=== PATIENT | female | born 1990 | race Two or more races ===

== ENCOUNTER 2020-10-29 15:29 | Emergency (ER) | payer OTHER ==
[~2020-10-29] VITALS: Ht 162.6 cm; Wt 75.7 kg
[2020-10-29] MEDS ORDERED: PRENATAL DHA200 MG PO (15:53)
[2020-10-29] MEDS ORDERED: ACETAMINOPHEN500 M1 PO (20:06)
== END 2020-10-29 20:01 | disposition home or self-care (01) ==
LOC: ER 15:29
DX: G43.909 Migraine, unspecified, not intractable, without status migrainosus (principal)

== ENCOUNTER 2021-04-20 10:31 | Emergency (ER) | payer OTHER ==
[~2021-04-20] VITALS: Ht 162.6 cm; Wt 85.3 kg
[~2021-04-20 10:31] MED LIST: ACETAMINOPHEN500 M1 PO; PRENATAL DHA200 MG PO
[2021-04-20] MEDS ORDERED: CYCLOBENZAPRINE10 MG PO (13:16)
[2021-04-20] MEDS ORDERED: 8HR ARTHRITIS650 MG PO (13:16)
== END 2021-04-20 13:24 ==
LOC: ER 10:31
DX: M54.32 Sciatica, left side (principal)

== ENCOUNTER 2021-05-24 14:30 | Inpatient (IN) | payer OTHER ==
[~2021-05-24] VITALS: Ht 162.6 cm; Wt 3.2 kg
[~2021-05-24 14:30] MED LIST changes: +8HR ARTHRITIS650 MG PO; +CYCLOBENZAPRINE10 MG PO
[2021-06-08] MEDS ORDERED: PRENATAL TABLE1 EAC1 PO (06:41)
[2021-06-09] MEDS ORDERED: PRENATAL MULTI1 EAC2 (13:47)
== END 2021-06-11 14:11 | disposition home or self-care (01) | DRG 788 ==
LOC: OB/GYN 05-26 14:30 → LDR 06-08 05:46 → O/R 06-08 13:25 → OB/GYN 06-08 15:23
PROVIDERS: ADMIT Specialist; ATTEND Specialist
PROC: 4A1HXFZ Monitoring of Products of Conception, Cardiac Rhythm, External Approach (ICD-10-PCS; 2021-06-08)
PROC: 10D00Z1 Extraction of Products of Conception, Low, Open Approach (ICD-10-PCS; principal; 2021-06-08 10:45)
DX: O33.9 Maternal care for disproportion, unspecified (principal); Z37.0 Single live birth; Z3A.40 40 weeks gestation of pregnancy